=== PATIENT | female | born 1975 | race Caucasian/White ===

== ENCOUNTER 2019-02-28 10:51 | Outpatient (CLI) | payer BC ==
--- NOTE | 2019-02-28 12:41 | RAD ---
CERVICAL SPINE SERIES THREE VIEWS: 02/28/19 HISTORY: Follow-up of neck surgery. The patient has undergone an anterior cervical fusion with placement of plate and screws at the C5-6 levels. Markers of a disc implant are within the confines of the disc level. IMPRESSION: Postoperative changes of the spine. Anterior cervical fusion noted at C5-6. POS: [facility]
== END 2019-02-28 10:52 | disposition home or self-care (01) ==
LOC: TBSIIMAG 10:51
PROVIDERS: ATTEND Neurological Surgery
DX: M50.30 Other cervical disc degeneration, unspecified cervical region (principal); Z98.1 Arthrodesis status
CPT/HCPCS: 72040

== ENCOUNTER 2019-04-17 13:38 | Outpatient (CLI) | payer BC ==
--- NOTE | 2019-04-17 14:35 | RAD ---
CERVICAL SPINE 3 VIEWS: Date: 04/17/19 HISTORY: Cervical spondylosis. Surgical follow-up. COMPARISON: 02/28/19. FINDINGS: Anterior plate and screws transfix C5-6 with disc implant present at this level. Posterior alignment is preserved through C6. There is a slight anterolisthesis at C6-7 which is a stable finding. IMPRESSION: Stable postoperative findings. POS: OFF
== END 2019-04-17 13:39 | disposition home or self-care (01) ==
LOC: TBSIIMAG 13:38
PROVIDERS: ATTEND Neurological Surgery
DX: M47.812 Spondylosis without myelopathy or radiculopathy, cervical region (principal); Z98.890 Other specified postprocedural states
CPT/HCPCS: 72040